=== PATIENT | male | born 1960 | race Caucasian/White ===

== ENCOUNTER → 2019-03-30 | Day surgery (SDC) | payer OTHER ==
[~2019-03-30] MED LIST: ASPI-630 PO; IV RINGERS,LACTATED 1000ML 1,000 ML IV SCH; LIDOCAINE 1% PF 2 ML VIAL. ID PRN; LIDOCAINE 2% PF 5 ML VIAL. ONE; LISI-334 PO; MIDAZOLAM HCL/PF 2 MG/2 ML VIAL. IV PRN; PROPOFOL 80 ML IV ONE; fentaNYL PF VIAL 100 MCG/2 ML VIAL IV PRN
[2019-03-30 10:55] VITALS: BP 145/85
--- NOTE | 2019-03-31 15:06 | PATHOLOGY ---
[facility] Accession Number: [id number] . 01 Material submitted: . PART A: colon - ASCENDING COLON POLYP. Modifiers: ascending PART B: sigmoid colon - SIGMOID COLON POLYP PART C: rectum - RECTAL POLYP . 01 Clinical history: . CRCS . 02 Diagnosis: A. Colon biopsies, ascending colon polyp: - Hyperplastic polyps. . B. Colon biopsy, sigmoid polyp: - Consistent with hyperplastic polyp/prominent mucosal fold. . C. Colorectal biopsies, rectal polyp: - Hyperplastic polyp. . (JPM:email campaign specialist; 03/31/2019) MBR/03/31/2019 . 02 Comment: There is no high-grade dysplasia or evidence of malignancy. (JPM:email campaign specialist; 03/31/2019) . 02 Electronically signed: . Louie Martinez MD, Pathologist NPI- [id number] . 01 Gross description: . A. Received in formalin labeled "Viola, Devin, ascending colon polyp BX," are 6 segments of scruggs soft tissue measuring 1.1 x 0.9 x 0.2 cm in aggregate dimensions and ranging from 0.2 to 0.4 cm in maximum dimension. The specimen is submitted entirely in cassette A1. . B. Received in formalin labeled "Viola, Devin, sigmoid polyp BX," is a single segment of scruggs soft tissue measuring 0.2 cm in maximum dimension. The specimen is entirely submitted in cassette B1. . C. Received in formalin labeled "Viola, Devin, rectal polyp BX," are 3 segments of scruggs soft tissue measuring 0.9 x 0.7 x 0.3 cm in aggregate dimensions and ranging from 0.1 to 0.4 cm in maximum dimension. The specimen is submitted entirely in cassette C1. (TSD; 03/30/2019) TOB/TOB . 02 Pathologist provided ICD-10: K63.5, K62.1 . 02 CPT . 871895, 710501, 239163 Specimen Comment: A courtesy copy of this report has been sent to Specimen Comment: [phone]. Specimen Comment: Report sent to Performed at: 01 [facility] [address] [place] [address] [address], [place] [id number] MD Stu Collins MD Phone: [phone] Performed at: 02 [facility] [address] [place], [place] [id number] MD Louie Martinez MD Phone: [phone]
== END | disposition home or self-care (01) ==
LOC: SURG 08:06
PROVIDERS: ATTEND Internal Medicine
DX: Z12.11 Encounter for screening for malignant neoplasm of colon (principal); K63.5 Polyp of colon; K62.1 Rectal polyp; K57.30 Diverticulosis of large intestine without perforation or abscess without bleeding; K64.0 First degree hemorrhoids; Z79.899 Other long term (current) drug therapy; Z98.890 Other specified postprocedural states; I10 Essential (primary) hypertension; Z72.89 Other problems related to lifestyle; Z79.82 Long term (current) use of aspirin
CPT/HCPCS: 45380; 88305; J2001; J2704